=== PATIENT | female | born 1955 | race Caucasian/White ===

== ENCOUNTER 2016-12-03 10:17 | Outpatient (CLI) | payer BC | END 2016-12-03 20:31 | disposition home or self-care (01) | LOC: SMA 10:17 | PROVIDERS: ATTEND Family Medicine | DX: Z12.31 Encounter for screening mammogram for malignant neoplasm of breast (principal) | CPT/HCPCS: G0202 ==

== ENCOUNTER 2016-12-24 09:43 | Outpatient (CLI) | payer BC | END 2016-12-24 21:00 | disposition home or self-care (01) | LOC: SUS 09:43 | PROVIDERS: ATTEND Family Medicine | DX: N63 Unspecified lump in breast (principal) | CPT/HCPCS: 76642; G0206 ==

== ENCOUNTER 2017-07-10 09:44 | Outpatient (CLI) | payer BC | END 2017-07-10 11:00 | disposition home or self-care (01) | LOC: SUS 09:44 | DX: N60.01 Solitary cyst of right breast (principal) | CPT/HCPCS: 76642 ==

== ENCOUNTER 2018-01-11 10:11 | Outpatient (CLI) | payer BC | END 2018-01-11 20:55 | disposition home or self-care (01) | LOC: SMA 10:11 | PROVIDERS: ATTEND Family Medicine | DX: Z12.31 Encounter for screening mammogram for malignant neoplasm of breast (principal) | CPT/HCPCS: 77067 ==

== ENCOUNTER 2019-03-29 09:52 | Outpatient (CLI) | payer BC | END 2019-03-29 21:06 | disposition home or self-care (01) | LOC: SMA 09:52 | PROVIDERS: ATTEND Family Medicine | DX: Z12.31 Encounter for screening mammogram for malignant neoplasm of breast (principal) | CPT/HCPCS: 77067 ==